=== PATIENT | male | born 1940 | race Caucasian/White ===

== ENCOUNTER 2017-01-22 11:48 | Inpatient (IN) | payer MEDICARE, BC ==
[~2017-01-22] VITALS: Ht 180.3 cm; Wt 114.7 kg
--- NOTE | ~2017-01-22 | ECH ---
Transthoracic Echocardiography Report (TTE) Demographics Patient Name LONNIE MOREL Date of Study 01/23/2017 Patient Number [id number] Visit Number [id number] Date of 1940 Room Number 315 Accession Number [id number] Gender Male Age 76 year(s) Referring Soledad Milligan Business Travel Consultant Liz Lyons [facility] Physician Mavis Lester MD Physician Interpreting Mavis Lester Gift Shop Clerk Physician MD Supervising Ordering Physician Soledad Milligan MD, MD/P Nurse Stress Gum Worker Conclusions Summary Technically fair exam. The estimated left ventricular ejection fraction is 55%. Mild left ventricular hypertrophy. Mildly dilated right ventricle with normal systolic function. The left atrium is mildly dilated by LA volume index measurement. The right atrium is moderate to severely dilated. There is mild aortic regurgitation by color Doppler. Mild tricuspid regurgitation by color Doppler. There is moderate pulmonary hypertension. The pulmonary pressure (RVSP) is 48 mmHg. The ascending aorta appears mildly dilated. The maximum diameter measures 3.77 cm. Procedure Type of Study TTE procedure:Echo Complete SF. Procedure Date Date: 01/23/2017 Start: 09:57 AM Technical Quality: Adequate visualization Indications:Atrial fibrillation. Amount - 9 ml Height: 71 inches Weight: 265 pounds BSA: 2.38 m Rhythm: Atrial fibrillation HR: 80 bpm BP: 124/57 mmHg M-Mode/2D Measurements LV Diastolic Dimension: 5.29 cm LV Systolic Dimension: 3.84 cm LV Septum Diastolic: 1.21 cm LV PW Diastolic: 1.18 cm AO Root Dimension: 3.25 cm Cardiac Output: 6.02 l/min LA Dimension: 4.06 cm Cardiac Index: 2.53 l/min*m RV Diastolic Dimension: 3.24 cm LA volume index: 38 ml/m LVOT: 2.46 cm LVOT VTI: 15.83 cm RV Base: 5.13 cm LV Stroke volume: 75.2 ml RV Mid: 3.6 cm LV Stroke volume index: 31.6 ml/m RV Length: 7.1 cm TAPSE: 2.9 cm TDI-S': 15 cm/s Doppler Measurements AV Peak Velocity: 1.2 m/s MV Peak E-Wave: 0.9 m/s AV Peak Gradient: 5.76 mmHg MV Peak A-Wave: 0.84 m/s AV Mean Gradient: 3.5 mmHg MV E/A Ratio: 1.08 LVOT Peak Velocity: 0.95 m/s MV P1/2t: 42.1 msec AV Area (Continuity):2.98 cm MV Deceleration Time: 145.2 msec TR Velocity:3.29 m/s MV Area (PHT): 5.23 cm TR Gradient:43.35 mmHg Estimated RAP:5 mmHg Estimated PASP: 48.35 mmHg Estimated RVSP: 48 mmHg RA Area: 32.72 cm Findings Left Ventricle The left ventricle is normal in size . Mild left ventricular hypertrophy. Diastolic function indeterminate due to patient's arrhythmia. Right Ventricle Mild to moderately dilated right ventricle with normal systolic function. Left Atrium The left atrium is mildly dilated by LA volume index measurement. Right Atrium The right atrium is moderate to severely dilated. Mitral Valve Normal mitral valve structure and function. Trivial mitral regurgitation by color Doppler. Aortic Valve The aortic valve is mildly sclerotic. There is mild aortic regurgitation by color Doppler. Tricuspid Valve Normal appearing tricuspid valve. Mild tricuspid regurgitation by color Doppler. There is moderate pulmonary hypertension. The pulmonary pressure (RVSP) is 48 mmHg. Pulmonic Valve Normal pulmonic valve structure and function. Pericardial Effusion No evidence of pericardial effusion. Miscellaneous The ascending aorta appears mildly dilated. The maximum diameter measures 3.77 cm. Pleural Effusion No evidence of pleural effusion. Contractility Score LV regional wall motion:(0-Non visualized 1-Normal 2-Hypokinesis 3-Akinesis 4-Dyskinesis 5-Aneurysm) Signature
--- NOTE | 2017-01-27 08:09 | HP ---
ADMIT: 01/22/2017 RM/LOC: ER [facility] MR#: [id number] [address] [address] CHRISTINE MOREL [address] [place] [address] History and Physical SEX: M AGE: 76 : 1940 DATE OF SERVICE: REASON FOR ADMISSION: 1. Possible sepsis. 2. Atrial fibrillation with rapid rate. HISTORY OF PRESENT ILLNESS: Christine a well-known patient of mine, who I care for, who was seen in [place] last evening. 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 He then developed profound weakness, cough, lightheadedness, questionable fever, and with his weakness was unable to get up and go and the ambulance was called. He was then was transferred to [place] for further evaluation and care. He was found to be in atrial fibrillation with rapid rate. He was started on Cardizem. He had fever. He had influenza culture performed, which was negative. This morning, he developed hypotension. His Cardizem drip was discontinued. Persistent fever and hypotension, and was subsequently transferred to [place] for further evaluation and care. He received 4 L of fluid and Zosyn. He had cultures performed there as well as laboratory and radiographic assessment. His UA was negative. Chest x-ray showed questionable focal marking on left apex. Blood sugar of 149. UA was negative. Sodium 149, potassium 3.5, BUN and creatinine 16 and 1.15. CK of 269, MB of 4.16. Troponin of less than 0.05. D-dimer was elevated to 2600. Lactic acid was 1.5. TSH was 1.94. White count 12.43, hemoglobin of 13.5, platelet count of a 114,000. At this time, he is transferred here for continued evaluation and care. After given 4 L of fluids, his blood pressure is much more improved, running in the one teens, and he is afebrile, as well as his heart rate is down into the 80s. He is currently off any type of antiarrhythmic. PAST MEDICAL HISTORY: Includes: 1. Atrial fibrillation in the distant past, had been in sinus rhythm. He has not been on any type of anticoagulation for years. 2. Degenerative arthritis. 3. Osteoarthritis. Multiple surgical procedures for osteoarthritis. 4. Elevated blood sugar. 5. History of glaucoma. SOCIAL HISTORY: He lives with his . No tobacco or alcohol. FAMILY HISTORY: Noncontributory. MEDICATIONS: Current medications are his eyedrops as well as Toprol. ALLERGIES: SULFA. PHYSICAL EXAMINATION: GENERAL: He is alert, articulate. He is afebrile. HEENT: Normal. HEART: Irregularly irregular rhythm without murmur. LUNGS: Clear, but diminished to auscultation. ABDOMEN: Rounded, soft. Positive bowel sounds present. ADMIT: 01/22/2017 RM/LOC: [facility] MR#: [id number] [address] [place] [id number] CHRISTINE MOREL [address] [place] [address] History and Physical SEX: M AGE: 76 : 1940 EXTREMITIES: No evidence of edema. ASSESSMENT: Admission of an elderly white male, who was transferred from [place] with atrial fibrillation with rapid rate, which is improved. New onset but there has been a history of chronic atrial fib dating back many years ago, but has been in sinus rhythm as well for many years. He is on aspirin therapy. He has a history of degenerative arthritis, evidence of concerns about sepsis with hypotension as well as some subtle abnormalities on chest x-ray. Urine is clear. At this time, we will get a CTA of his chest as his D-dimer is elevated and also better define his abnormality seen on chest x- ray. He will continue IV hydration with normal saline. Get an echocardiogram. Repeat cardiac enzymes. His laboratory assessment was pending here in the emergency room. We will start heparin per protocol for atrial fib, as well ask Cardiology to see and assist in his care. We will continue to follow closely. Deedee Rowe MD/ mireille JOB #: [id number] CC: Roc Juarez, Attending Physician Deedee Rowe, Family Physician
--- NOTE | 2017-01-28 14:38 | ER ---
ADMIT: 01/22/2017 RM/LOC: ER [facility] MR#: [id number] [address] [address] CHARLOTTE MOREL [address] [place] [address] Emergency Room Report SEX: M AGE: 76 : 1940 DATE: 01/22/2017 ADDENDUM: CHIEF COMPLAINT: Fever and cough. HISTORY OF PRESENT ILLNESS: This is a 76-year-old male who developed cough, just recently. He was actually admitted at [place] yesterday for atrial fibrillation with RVR and temp of 103. Chest x-ray showed questionable pneumonia there. They did start him on Zosyn. He had 4 L of fluids prior to arrival to the ER. COURSE IN THE ER: We did a sepsis protocol. At this time, labs are still pending but Dr. Rowe came down to the ER to see the patient. CT of his chest did verify that he has a left upper lobe pneumonia. Labs so far showed white count of 19.9, hemoglobin 12.6, platelets 113. PT/INR are normal. CMP is normal except for glucose of 116. Magnesium low at 1.6. Albumin 3.0. GFR is 59. Cardiac enzymes are normal. Lactic acid is 1.1. EKG showed sinus rhythm at rate of 83. CLINICAL IMPRESSION: Pneumonia and sepsis. DISPOSITION: He is stable at admit. Again, Dr. Rowe came down to the ER and saw the patient and gave orders down here. Again, Zosyn was started on his way here to [place]. LEA Read / Roc Juarez MD / palakl JOB #: [id number] CC: Roc Juarez MD, Attending Physician Deedee Rowe MD, Family Physician
[2017-01-31] MEDS ORDERED: LUMIGAN 0.01%2.5 ML OU (13:41)
[2017-01-31] MEDS ORDERED: ASA CHILDREN'S81 MG PO (13:41)
[2017-01-31] MEDS ORDERED: CARDURA DPS2 MG PO (13:41)
[2017-01-31] MEDS ORDERED: TOPROL XL DPS50 MG PO (13:41)
[2017-01-31] MEDS ORDERED: TESSALON PERLE100 M1 PO (13:42)
[2017-01-31] MEDS ORDERED: CORDARONE DPS200 MG PO (13:42)
[2017-01-31] MEDS ORDERED: GLUCOPHAGE-DPS500 MG PO (13:42)
[2017-01-31] MEDS ORDERED: DULERA 200/58.8 GM IH (13:42)
[2017-01-31] MEDS ORDERED: TIMOLOL MALEATE15 ML OU (13:42)
[2017-01-31] MEDS ORDERED: FLONASE 0.05% D16 GM NS (13:43)
[2017-01-31] MEDS ORDERED: DELTASONE DPS10 MG PO (13:43)
[2017-01-31] MEDS ORDERED: PROVENTIL HFA6.7 GM IH (13:44)
[2017-01-31] MEDS ORDERED: COUMADIN5 MG PO (13:44)
[2017-01-31] MEDS ORDERED: ZITHROMAX500 MG PO (13:44)
--- NOTE | 2017-02-02 11:41 | CO ---
ADMIT: 01/22/2017 RM/LOC: 405 [facility] MR#: [id number] [address] [address] LONNIE PALACIOS [address] [place] [address] Consultation SEX: M AGE: 76 : 1940 DATE OF CONSULTATION: 01/27/2017 ATTENDING PHYSICIAN: Deedee Rowe CONSULTING PHYSICIAN: Kathy Lawrence MD REASON FOR CONSULT: Diffuse lymphadenopathy. Thank you, Dr. Rowe, for the consult and involving me in this patient's care. HISTORY OF PRESENT ILLNESS: Mr. Palacios is a 76-year-old man, who lives in [place], and developed profound weakness, lightheadedness, and chills. He also complained of cough with intermittent sputum production. Hence, he was transferred to [place] and was noted to have atrial fibrillation with RVR with temperature of 103. Subsequently, transferred to [place] where he was started on Zosyn, levofloxacin. He underwent a CTA chest, which showed left upper lobe consolidation concerning for pneumonia and mildly prominent mediastinal and axillary lymphadenopathy. Since yesterday, he started complaining of cramping abdominal pain associated with flatulence, hence, a CT abdomen and pelvis was done, which again showed periaortic and left iliac lymphadenopathy. There is prominent left-sided pleural effusion with compressive atelectasis of the left lower lobe. He continues to have low-grade fevers with T-max of 100.4 yesterday. He is currently on heparin drip, and his atrial fibrillation is being managed by Cardiology. PAST MEDICAL HISTORY: 1. Atrial fibrillation. 2. Arthritis. 3. History of glaucoma. SOCIAL HISTORY: [place] with his . Denies any smoking, alcohol, or recreational drug use. He has cattle, cats, and dogs. Denies any recent travel. FAMILY HISTORY: Significant for breast cancer in his mother. ALLERGIES: SULFA, WHICH CAUSES ANAPHYLAXIS. CURRENT MEDICATIONS: Include: 1. Aspirin. 2. Cardura. 3. Cordarone. 4. Glucophage. 5. Toprol-XL. 6. Dulera. 7. DuoNeb. 8. Heparin drip. ADMIT: 01/22/2017 RM/LOC: 405 [facility] MR#: [id number] [address] [address] LONNIE PALACIOS [address] [place] [id number] Consultation SEX: M AGE: 76 : 1940 9. Zosyn 3.375 g every 8 hours. 10.Levofloxacin 500 mg once daily. 11.Solu-Medrol 60 mg every 8 hours. REVIEW OF SYSTEMS: A 10-point review of systems negative except as mentioned in HPI. PHYSICAL EXAMINATION: VITAL SIGNS: Current temperature 98.5, T-max 100.8, heart rate 150, blood pressure 127/79, and 90% on room air. GENERAL: No acute distress. HEENT: Head, normocephalic and atraumatic. Extraocular movements intact. Oral mucosa moist. LYMPH: No palpable anterior/posterior cervical or supraclavicular lymphadenopathy. CHEST: Decreased breath sounds at bases. CARDIOVASCULAR: S1 and S2 heard. No murmurs, rubs, or gallops. ABDOMEN: Soft, obese, and nontender. Active bowel sounds. PSYCH: Normal affect. Memory intact. SKIN: No rash noted on exposed skin. Normal skin turgor. LABORATORY DATA: Data review, per HPI. CBC today shows white count of 6.4, hemoglobin 11.8, platelets 178. BMP shows creatinine of 1. ASSESSMENT: 1. Left upper lobe pneumonia. 2. Mediastinal and periaortic lymphadenopathy. 3. Left pleural effusion. 4. Atrial fibrillation with rapid ventricular rate. 5. Diabetes mellitus. 6. Hypertension. ADMIT: 01/22/2017 RM/LOC: 405 [facility] MR#: [id number] [address] [address] LONNIE PALACIOS [address] [place] [address] Consultation SEX: M AGE: 76 : 1940 PLAN: I will stop levofloxacin and Zosyn and change the antibiotics to ceftriaxone and azithromycin for community-acquired pneumonia. I will check a sputum for culture and sensitivity and also check his urine for Legionella antigen. He reported recent cleaning in his barn, so, I will also check a urine histoplasma antigen given the lymphadenopathy. The left pleural fluid looks bigger on the CT scan with compressive atelectasis, hence, we will get IR guided thoracentesis and check pleural fluid for cytology and culture. If there is no improvement in his lymph nodes, then, he might even need a biopsy to rule out any malignancy. Thank you for the consult and I will continue to follow the patient. Kathy Lawrence MD/ mireille JOB #: [id number] CC: Deedee Rowe, Attending Physician Deedee Rowe, Family Physician
--- NOTE | 2017-02-06 07:52 | DS ---
ADMIT: 01/22/2017 RM/LOC: 405 [facility] MR#: [id number] [facility]#: [id number] [address] [address] LONNIE MOREL [place] [address] [place] [address] Discharge Summary SEX: M AGE: 76 : 1940 ADMISSION DATE: 01/22/2017 DISCHARGE DATE: 01/30/2017 DISCHARGE DIAGNOSES: 1. Paroxysmal atrial fibrillation, diffuse. 2. Viral pneumonia. 3. History of hypertension. 4. Degenerative arthritis. 5. Dehydration. 6. History of deep-venous thrombosis. HISTORY OF PRESENT ILLNESS: Well documented in his H and P. The laboratory and radiographic assessment during this hospitalization is as follows: On admission, his white count was 4.7, hemoglobin 12.6, platelet count 113,000. On discharge, his white count was 5.2, hemoglobin 11.6, platelet count of 198,000. INR at the time of discharge was 2.63. His serum sodium on admission was 141, potassium 3.8, BUN and creatinine 17 and 1.2, blood sugar 116, magnesium 1.6. Lactic acid 1.1. Cardiac enzymes were negative. Blood sugars during this hospitalization ranged between 114-152. Hemoglobin A1c was 6.2. TSH of 3.42. His HIV was negative. His Legionella was negative. Blood cultures showed no growth. CTA of chest showed left upper lobe consolidation/pneumonia, recommend followup images; mild prominent mediastinal and axillary lymphadenopathy, probably reactive. CT abdomen and pelvis showed cholelithiasis, periaortic and left iliac lymphadenopathy of uncertain etiology; prominent left-sided pleural effusion with compressive atelectasis; left upper lobe pneumonia; left-sided pleural effusion. At the time of discharge, chest x-ray showed improvement, hyperventilation, improved aeration of the left lung with an interval decrease in pleural effusion over the left, there is mild residual effusion on the left. Echocardiogram showed technically fair exam, estimated left ejection fraction of 55%, mild left ventricular hypertrophy, mild-dilated right ventricle, normal systolic function, left atrium is mildly dilated by LV volume, the right atrium is [id number] dilated. There is mild aortic regurgitation, mild tricuspid regurgitation with moderate pulmonary hypertension. Ascending aorta appears mildly dilated. EKG on admission showed sinus rhythm, PACs. EKG on admission showed atrial fibrillation with rapid ventricular rate. Followup EKG showed sinus rhythm. HOSPITAL COURSE: Lonnie is a well-known patient of mine, who was admitted to [facility] with development of lightheadedness, dizziness, and increasing shortness of breath. He was found to have rapid ventricular rate and was treated with Cardizem for rate control. He had evidence of hypotension and was fluid volume resuscitated and was transferred here, has concerns about diffuse pneumonia and his atrial fibrillation. He was seen and evaluated in the emergency room originally. He underwent CTA of his chest, which did not show any evidence of PE. He was started on antibiotics as it showed a diffuse pneumonia. He was also started on heparin per protocol. Echocardiogram was performed. Cardiac enzymes were completed. He was started on Toprol-XL 50 mg daily as well as aspirin 81 mg daily. Accu-Shakeel a.c. and ADMIT: 01/22/2017 RM/LOC: 405 [facility] MR#: [id number] [address] [address] LONNIE MOREL [address] [place] [address] Discharge Summary SEX: M AGE: 76 : 1940 at bedtime. Hemoglobin A1c was performed, which was mildly elevated. He was seen and evaluated by Cardiology. He was placed on IV amiodarone. Continue low-dose heparin. He was initiated on Coumadin therapy, started diabetic education. He has continued to be followed by Cardiology. Potassium replacement was undertaken. His amiodarone was converted to oral. Thyroid studies were performed. His chest x-ray continued to show persistent infiltrates and did ask Dr. Lawrence to see and assist and follow in his care. He was given IV Solu-Medrol, placed on ceftriaxone and azithromycin IV. Did not have enough pleural fluid to do a thoracentesis. He continued to improve and was subsequently discharged in sinus rhythm and afebrile. We discharged him home. I will see him in 7-10 days. He is on a prednisone taper. We will have CT of the chest and abdomen in 1 month, Dulera metered-dose inhaler, continue Coumadin, follow up with cardiology and Zithromax 250 mg one p.o. daily for 7 days. He was discharged in stable condition. Deedee Rowe MD/ mireille JOB #: [id number] CC: Deedee Rowe MD, Attending Physician Deedee Rowe MD, Family Physician
--- NOTE | 2017-02-06 17:29 | CO ---
ADMIT: 01/22/2017 RM/LOC: [facility] MR#: [id number] [address] [address] LONNIE MOREL [address] [place] [address] Consultation SEX: M AGE: 76 : 1940 DATE OF CONSULTATION: 01/22/2017 ATTENDING PHYSICIAN: Deedee Rowe CONSULTING PHYSICIAN: Tomás Gamble MD REASON FOR CONSULT: Atrial fibrillation with RVR. Olamide Ryder RN, scribing for Tomás Gamble MD. HISTORY OF PRESENT ILLNESS: Lonnie is a pleasant 76-year-old gentleman, I have been asked to see in Cardiology consultation for Dr. Deedee Rowe for atrial fibrillation. He has prior history of paroxysmal atrial fibrillation, followed by Dr. Jake Vasquez at [facility] office. He was last seen in September of 2016. He has no history of coronary artery disease but he does have history of hyperlipidemia and hypertension. Last echocardiogram was performed in October of 2010, showing normal ejection fraction with mild MR. He did wear a ZIO patch in 2012 that showed no evidence of atrial fibrillation. He was not on anticoagulation. Last episode of atrial fibrillation per his knowledge was in 2009, for which he was symptomatic with chest pressure and throat tightness along with palpitations and lightheadedness. Since 2009, he denies any other episodes of that occurring. Lonnie presented last night to [facility] with complaints of severe weakness and lightheadedness along with chest pressure and tightness similar to what he experienced in the past with his atrial fibrillation. He states that earlier in the evening, he was at [employer] and he had no complaints until the end of service when he got the chills. He then went out to check cattle last night and got extremely weak and lightheaded. With cough, he fell fever and got to the point where he was so weak, he could not even to get up. EMS was called and he was taken by ambulance to [facility] where he was found to be in atrial fibrillation with RVR. Heart rates up in the 180s. Cardizem drip was started; however, he then got hypotensive with systolic blood pressures in the 70s. D-dimer is 2600. His white count was elevated. Cardizem drip was stopped because of his low blood pressure. He was suspected to be septic and was given IV antibiotics along with multiple L of fluid. He was transferred to [facility] this morning, where at one point, he did convert to sinus rhythm in the 80s. He had a few episodes back into atrial fibrillation, however, is currently in sinus rhythm with good rate control and blood pressure of 120s over 50s. He continues to be febrile with temperature of 100.8 and it continues to complain of weakness and chills. He currently denies any symptoms of the fullness in his throat or chest. Creatinine was 1.2. Cardiac enzymes were checked x1, which were negative. He does have elevated white blood cell count of 16.9. PAST MEDICAL HISTORY: Paroxysmal atrial fibrillation, history of DVT, hypertension, hyperlipidemia, recurrent pneumonia, and osteoarthritis. PAST SURGICAL HISTORY: Includes left total knee arthroplasty, right total ADMIT: 01/22/2017 RM/LOC: [address] [facility] MR#: [id number] [address] [address] LONNIE MOREL [address] [place] [address] Consultation SEX: M AGE: 76 : 1940 knee arthroplasty, right total hip arthroplasty. ALLERGIES: TIMOLOL, TRAMADOL, AND SULFA HOME. HOME MEDICATIONS: Include: 1. Toprol-XL 50 mg daily. 2. Aspirin 81 mg daily for cardiac medications. 3. He also uses some eye drops. FAMILY HISTORY: Positive family history of mom who had breast cancer. SOCIAL HISTORY: Lonnie is . He lives at home with his in [place]. 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 Rare alcohol use. No drug use. No special diet and no tobacco use. REVIEW OF SYSTEMS: GENERAL: Reports increased fatigue over the last 24 hours with recent fever over the last 24 hours. Denies any weight changes. EYES: History of glaucoma. Denies any cataracts or vision loss. THROAT, MOUTH, AND EARS: Some sore throat currently. Denies any hearing loss. RESPIRATORY: Current pneumonia. Denies any hemoptysis or obstructive sleep apnea. GASTROINTESTINAL: Denies heartburn or difficulty swallowing. No change in bowel habits. Denies dark or bloody stools. No history of ulcers, hiatal hernia, or gallbladder or liver disease. GENITOURINARY: Denies dysuria, hematuria, nocturia, urinary tract infection, or kidney stones. Denies history of renal insufficiency or failure. MUSCULOSKELETAL: History of osteoarthritis. Denies gout. ENDOCRINE: Denies history of thyroid dysfunction or diabetes. HEMATOLOGIC: Denies history of anemia, easy bruising, or cancer. NEUROLOGIC: Denies chronic headaches, dizziness, syncope, stroke, seizures or numbness or tingling. PSYCHIATRIC: Denies history of mental illness or feelings of depression. PHYSICAL EXAMINATION: VITAL SIGNS: Blood pressure is 132/44, heart rate 85, respirations 16, temperature 100.8, oxygenation 94% on O2. GENERAL: Alert and diaphoretic. NECK: No bruits or JVD. SKIN: [place], warm and dry. EYES: Sclerae clear. No xanthelasmas. ENT: Oral mucosa is pink and moist. No jugular venous distention or carotid bruits. LUNGS: Question crackles in left base. HEART: Regular rate and rhythm. Normal S1, S2. No murmurs, rubs or gallops. ABDOMEN: Obese, bowel sounds present x4. EXTREMITIES: Trivial edema bilaterally. No cyanosis or clubbing. MUSCULOSKELETAL: Gait is normal. PSYCHIATRIC: Alert and oriented. Mood and affect are appropriate. ADMIT: 01/22/2017 RM/LOC: [address] [facility] MR#: [id number] [address] LONNIE MOREL [address] [place] [address] Consultation SEX: M AGE: 76 : 1940 DIAGNOSTIC DATA: CTA of chest on 01/22 showed left upper lobe consolidation, concerning for pneumonia. No pulmonary embolism. Sodium 141, potassium 3.8, BUN 17, creatinine 1.2, glucose 116, magnesium 1.6. CK 116, MB 1.4, troponin 0.040. INR 1.15. White blood cell count 16.9, hemoglobin 12.6, hematocrit 40.0, platelets 113. Lactic acid 1.1. ASSESSMENT AND PLAN: 1. Paroxysmal atrial fibrillation. 2. History of atrial flutter. 3. Pneumonia. 4. Possible sepsis. Lonnie is a pleasant 76-year-old male with history of atrial arrhythmias. He had a new cough and diaphoresis last night and found to be in atrial fibrillation with rapid ventricular response on presentation to [facility]. He converted to sinus on Cardizem drip but was hypotensive. He was transferred from [facility] to the [facility] this morning. CT does show pneumonia. He has history of paroxysmal atrial fibrillation, no more episodes with acute illness. I will start amiodarone for short-term treatment in order to continue maintained sinus rhythm without affecting blood pressure. I agree with anticoagulation. I will continue to watch him closely. Thank you for the consultation. "I have read and agree with the documentation that has been completed regarding this visit. By signing this record, I attest that the documentation was completed in my physical presence and is an accurate record of the encounter." Olamide Ryder RN / Tomás Gamble MD / palakl JOB #: [id number] CC: Deedee Rowe, Attending Physician Deedee Rowe, Family Physician
== END 2017-01-30 11:17 | disposition home or self-care (01) | DRG 871 ==
LOC: ER 11:48 → 4PCU 12:55 → 3ICU 12:55 → 4PCU 01-23 16:41
PROVIDERS: ADMIT Internal Medicine
DX: A41.9 Sepsis, unspecified organism (principal); J18.1 Lobar pneumonia, unspecified organism; I48.0 Paroxysmal atrial fibrillation; R59.0 Localized enlarged lymph nodes; E11.9 Type 2 diabetes mellitus without complications; M19.90 Unspecified osteoarthritis, unspecified site; H40.9 Unspecified glaucoma; E83.42 Hypomagnesemia; E83.51 Hypocalcemia; I10 Essential (primary) hypertension; E78.5 Hyperlipidemia, unspecified; Z96.653 Presence of artificial knee joint, bilateral; Z96.641 Presence of right artificial hip joint; Z79.82 Long term (current) use of aspirin; Z86.718 Personal history of other venous thrombosis and embolism

== ENCOUNTER → 2017-03-02 | Outpatient (CLI) | payer MEDICARE, BC ==
[~2017-03-02] MED LIST: ASA CHILDREN'S81 MG PO; CARDURA DPS2 MG PO; CORDARONE DPS200 MG PO; COUMADIN5 MG PO; DELTASONE DPS10 MG PO; DULERA 200/58.8 GM IH; FLONASE 0.05% D16 GM NS; GLUCOPHAGE-DPS500 MG PO; LUMIGAN 0.01%2.5 ML OU; PROVENTIL HFA6.7 GM IH; TESSALON PERLE100 M1 PO; TIMOLOL MALEATE15 ML OU; TOPROL XL DPS50 MG PO; ZITHROMAX500 MG PO
== END | disposition home or self-care (01) ==
LOC: PTH.S 12:21 → RAD.S 13:00
DX: I48.91 Unspecified atrial fibrillation (principal); E11.9 Type 2 diabetes mellitus without complications; J90 Pleural effusion, not elsewhere classified; R59.9 Enlarged lymph nodes, unspecified; K80.20 Calculus of gallbladder without cholecystitis without obstruction